=== PATIENT | male | born 1935 | race Caucasian/White ===

== ENCOUNTER 2016-09-15 06:37 | Observation (INO) | payer OTHER ==
[~2016-09-15] VITALS: Ht 167.6 cm; Wt 85.2 kg
[2016-09-15] VITALS (14 sets, daily range): BP systolic 131–159; BP diastolic 55–68; PULSE 57–87; RESP 18; TEMP 97.6–98.1; O2SAT 91–93
[~2016-09-15 06:37] MED LIST: AMLO10TA2 PO; ASPI81CH CHEW; ATOR40TA16 PO; BRIL90TA PO; CHOL1CAP14 PO; FERR1TAB58 PO; FINA5TAB2 PO; FURO40TA PO; LISI40TA PO; MEMA1TAB2 PO; METF850T PO; METO25TA3 PO; MULTTAB67 PO; NITR0.4S SL; PANT20 PO; PENT400T19 PO
[2016-09-15] MEDS: NS 1000P @30 MLS/HR (KVO) IV SCH ×2 (07:00→12:29)
[2016-09-15] MEDS ORDERED: diphenhydrAMINE HCL 50 MG CAP PO SCH (07:00)
[2016-09-15 07:25] LABS: BASOPHIL # 0.1 TH/MM3 (0-0.2); BASOPHIL % 1.1 % (0.0-2.0); EOSINOPHIL # 0.1 TH/MM3 (0-0.4); EOSINOPHIL % 0.7 % (0.0-4.0); HEMATOCRIT 31.3 % (39.0-51.0); HEMO FLAGS DIFF FINAL; LYMPH % 15.6 % (9.0-44.0); LYMPHOCYTE # 1.3 TH/MM3 (1.0-4.8); MEAN CORPUSCULAR HEMOGLOBIN 30.3 PG (27.0-34.0); MEAN CORPUSCULAR HGB CONC 34.4 % (32.0-36.0); MONO % 9.8 % (0.0-8.0); NEUT % 72.8 % (16.0-70.0); PLATELET COUNT 223 TH/MM3 (150-450); RED BLOOD COUNT 3.55 MIL/MM3 (4.50-5.90); RED CELL DISTRIBUTION WIDTH 13.5 % (11.6-17.2); WHITE BLOOD COUNT 8.3 TH/MM3 (4.0-11.0)
[2016-09-15] MEDS ORDERED: LANTINJ SQ (07:25)
[2016-09-15] MEDS ORDERED: ISOS30TA3 PO (07:25)
[2016-09-15] MEDS ORDERED: SPIR50TA PO (07:25)
[2016-09-15 07:34] LABS: APTT (PATIENT) 27.5 SEC (24.3-30.1); PROTHROMBIN TIME - PATIENT 11.3 SEC (9.8-11.6)
[2016-09-15 07:39] LABS: BICARBONATE 28.5 MEQ/L (21.0-32.0); POTASSIUM 3.5 MEQ/L (3.5-5.1)
[2016-09-15] MEDS ORDERED: methylPREDNISolone SOD SUCC 125 MG/2 ML VIAL IV ONE (08:00)
[2016-09-15] MEDS ORDERED: MIDAZOLAM HCL 2 MG/2 ML VIAL IV ONE (08:00)
[2016-09-15] MEDS ORDERED: FAMOTIDINE 20 MG/2 ML VIAL IV ONE (08:00)
[2016-09-15] MEDS ORDERED: HEPARIN SODIUM - IV 10,000 UNITS/10 ML VIAL IV ONE ×2 (08:00)
[2016-09-15] MEDS ORDERED: HEPARIN-NS/PF INJ 500 ML ONE (08:19)
[2016-09-15] MEDS ORDERED: methylPREDNISolone SOD SUCC 125 MG/2 ML VIAL ONE (08:26)
[2016-09-15] MEDS ORDERED: MIDAZOLAM HCL 2 MG/2 ML VIAL ONE (08:26)
[2016-09-15] MEDS ORDERED: HEPARIN SODIUM - IV 10,000 UNITS/10 ML VIAL ONE (09:12)
[2016-09-15] MEDS ORDERED: SODIUM CHLORIDE 0.9% FLUSH 5 ML FLUSH IVF PRN (10:15)
[2016-09-15] MEDS ORDERED: ONDANSETRON HCL 4 MG/2 ML VIAL IV PRN (10:15)
[2016-09-15] MEDS: TICAGRELOR 90 MG TAB PO SCH ×3 (10:15→21:00)
[2016-09-15] MEDS ORDERED: ASPIRIN 81 MG CHEW TAB PO SCH (10:15)
[2016-09-15] MEDS ORDERED: MISC INFORMATION XX ONE (10:15)
[2016-09-15] MEDS ORDERED: ATROPINE SULFATE 1 MG/ML VIAL IV PRN (10:15)
[2016-09-15] MEDS: SODIUM CHLORIDE 0.9% FLUSH 5 ML FLUSH IVF SCH ×2 (10:15→20:29)
--- NOTE | 2016-09-15 10:41 | MA ---
cc: JENNIFERNICHOLAS Meadows DATE 09/15/2016 DATE OF 1935 PROCEDURE PERFORMED 1. Left heart catheterization, selective 2. SVG and SPENCER angiography. 3. Successful PCI/CURTIS to ramus 4. Successful POBA to Left main. INDICATION Unstable angina. DESCRIPTION OF PROCEDURE Consent signed. The patient was prepped and draped in sterile fashion. Premedication for contrast allergy was given. Using 1% lidocaine for local anesthesia and a micropuncture kit, a 6-[place] line sheath was inserted into the right common femoral artery, right common femoral and angiography confirmed position of the sheath. Then selective right and left coronary angiography was performed with a JL-4 and a AR-1 diagnostic catheter followed by angiography of the saphenous vein graft as well as of the left anterior pulmonary artery. Angiography was performed in multiple views. The left ventricle was crossed with a JR-4 diagnostic catheter. Hemodynamics were recorded and then pullback. The previous left main stent was patent, however, the ramus vessel had a proximal 99% stenosis which is new since previous intervention which was DOMI- II flow. The length of the lesion is 8 mm. Thus, we proceeded to fix this vessel. IV Heparin given for anticoagulation. The left main was engaged with a 3.5 EBU guide 6-[place] guide. Then the RAMUS was wired with a Choice PT extra- support and anchored distally without complications. Then the vessel was predilated with a 1.5 balloon followed by a 2.0 balloon. Then we inserted and deployed a 2.25 x 8 drug-eluting stent which was inflated to high atmospheres. Then we proceeded to treat a 40% lesion in the left main with a noncompliant 4- 0 balloon to high atmospheres. Final angiographic views revealed good stent apposition and expansion with DOMI-III flow. ESTIMATED BLOOD LOSS Less than 50 cc. The right groin access site was closed with a Perclose device. ANGIOGRAPHIC FINDINGS The left ventricular pressure was 155/26 with an LVEDP of 37. The aortic pressure was 155/50 with a mean of 80. There was no gradient from pullback from the left ventricle to the aorta. 1. The left main has a patent stent with a 40% focal lesion distally. 2. The LAD is 100% occluded in the mid segment. The first diagonal is diffusely diseased with calcifications throughout. 3. The left circumflex is 100% occluded at the ostium. 4. The right coronary artery is a small vessel, nondominant, diffusely diseased with a long 98% lesion proximal to mid segment. 5. The saphenous vein graft to OM is in sequential configuration to the third OM and to the PDA is patent. 6. The SPENCER to the LAD is patent. It attaches to the LAD in the mid segment. The LAD is a transapical vessel with minimal luminal irregularities and DOMI- III flow. 7. The ramus has a 90% lesion in its ostium. It is a small vessel and diffusely diseased. CONCLUSIONS 1. Severe upper [place] coronary artery disease status Patent 2/2 grafts. 2. Successful PCI/CURTIS to RAMUS. 3. Successful POBA to left main. 4. Elevated LVEDP. RECOMMENDATIONS 1. Continue dual antiplatelet agent with aspirin and Brilinta. 2. Continue OMT for coronary artery disease/ischemia with beta-blockers and increase long-acting Imdur to 60 mg p.o. daily. 3. Continue LITTLE inhibitors and statins. Patient will follow with Dr. Crawford MD DONNA Lindsey/MOISES /10:09 AM /10:19 AM INA
[2016-09-15] MEDS ORDERED: IOHEXOL 350 MG/ML 50 ML BTL (for Cath Lab) OTHER ONE (11:38)
[2016-09-15] MEDS ORDERED: IOHEXOL 350 MG/ML 100 ML BTL (for Cath Lab) OTHER ONE (11:38)
[2016-09-15] MEDS ORDERED: RESP: LEVALBUTEROL HYDROCHLORIDE 1.25 MG/3 ML NEB (SCH) NEB ONE (18:00)
[2016-09-15] MEDS ORDERED: FUROSEMIDE 20 MG/2 ML VIAL IV PUSH ONE (18:15)
--- NOTE | 2016-09-15 18:32 | EKG ---
Date Performed: 09/15/2016 Time Performed: 07:26:48 PTAGE: 81 years EKG: Atrial Ventricular paced Left axis deviation Abnormal ECG PREVIOUS TRACING : 08/01/2016 18.14 Compared to prior tracing no significant change DOCTOR: Carlitos Sidhu Interpretating Date/Time 09/15/2016 18:30:24
[2016-09-15] MEDS ORDERED: ATORVASTATIN 40 MG TAB PO SCH (21:00)
[2016-09-15] MEDS ORDERED: DEXTROSE 50% IN WATER 50 ML VIAL(D50) IV PUSH PRN (21:15)
[2016-09-15] MEDS ORDERED: GLUCAGON 1 MG/ML VIAL OTHER PRN (21:15)
[2016-09-15] MEDS: METOPROLOL TARTRATE 25 MG TAB PO SCH (21:34)
[2016-09-15] MEDS: INSULIN NovoLIN REGULAR SUPPLEMENTAL SCALE SQ SCH (21:36)
[2016-09-16] VITALS (11 sets, daily range): BP systolic 129–136; BP diastolic 58–68; PULSE 60–74; RESP 19; TEMP 97.8–98; O2SAT 94–97
[2016-09-16] MEDS: METOPROLOL TARTRATE 25 MG TAB PO SCH (06:14)
[2016-09-16] MEDS: INSULIN NovoLIN REGULAR SUPPLEMENTAL SCALE SQ SCH (06:15)
[2016-09-16] MEDS: TICAGRELOR 90 MG TAB PO SCH (08:42)
[2016-09-16] MEDS: SODIUM CHLORIDE 0.9% FLUSH 5 ML FLUSH IVF SCH (08:45)
[2016-09-16] MEDS ORDERED: LISINOPRIL 20 MG TAB PO SCH (09:00)
[2016-09-16] MEDS ORDERED: ISOSORBIDE MONONITRATE 30 MG TAB PO SCH (09:00)
[2016-09-16] MEDS ORDERED: PANTOPRAZOLE SOD 20 MG DELAYED RELEASE TAB PO SCH (09:00)
[2016-09-16] MEDS ORDERED: MULTIVITAMIN TAB PO SCH (09:00)
[2016-09-16] MEDS ORDERED: MEMANTINE HCL 10 MG TAB PO SCH (09:00)
[2016-09-16] MEDS ORDERED: SPIRONOLACTONE 50 MG TAB PO SCH (09:00)
[2016-09-16] MEDS ORDERED: ASPIRIN 81 MG CHEW TAB CHEW SCH (09:00)
[2016-09-16] MEDS ORDERED: FINASTERIDE 5 MG TAB PO SCH (09:00)
[2016-09-16] MEDS ORDERED: FUROSEMIDE 40 MG TAB PO SCH (09:00)
--- NOTE | 2016-09-16 09:20 | HHI.DS ---
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 CBC/BMP: 09/15/16 0710 09/15/16 0710 Significant Findings Laboratory Tests Test 09/15/16 07:10 Red Blood Count 3.55 MIL/MM3 (4.50-5.90) Hemoglobin 10.8 GM/DL (13.0-17.0) Hematocrit 31.3 % (39.0-51.0) Neutrophils (%) (Auto) 72.8 % (16.0-70.0) Monocytes (%) (Auto) 9.8 % (0.0-8.0) Blood Urea Nitrogen 25 MG/DL (7-18) Estimat Glomerular Filtration 53 ML/MIN (>89) Rate Random Glucose 140 MG/DL (74-106) Calcium Level 8.4 MG/DL (8.5-10.1) PE at Discharge GENERAL: Well-nourished, well-developed patient. SKIN: Warm and dry. HEAD: Normocephalic. EYES: No scleral icterus. No injection or drainage. NECK: Supple, trachea midline. No JVD or lymphadenopathy. CARDIOVASCULAR: Regular rate and rhythm without murmurs, gallops, or rubs. RESPIRATORY: Breath sounds equal bilaterally. No accessory muscle use. GASTROINTESTINAL: Abdomen soft, non-tender, nondistended. EXTREMITIES: No cyanosis, or edema. NEUROLOGICAL: Awake, alert, and oriented x 3. Non-focal. Pt Condition on Discharge: Good Discharge Disposition: Discharge Home Discharge Instructions DIET: Follow Instructions for: Diabetic Diet Activities you can perform: Regular-No Restrictions Hector Harris MD Sep 16, 2016 09:20
--- NOTE | 2016-09-16 09:21 | PD.CARD.PN ---
Subjective Subjective Remarks no complaints no overnight events ambulating without difficulty Objective Medications Current Medications Medications (Trade) Dose Ordered Sig/Alfie Route Start Time Stop Time Status Last Admin (NS 1000 ml Inj) 1,000 ml @ 30 mls/hr Q24H IV 09/15/16 07:00 09/15/16 07:00 (NS Flush) 2 ml UNSCH PRN IVF 09/15/16 10:15 (NS Flush) 2 ml BID IVF 09/15/16 10:15 09/16/16 08:45 (Atropine Inj) 0.5 mg UNSCH PRN IV 09/15/16 10:15 (Zofran Inj) 4 mg Q4H PRN IV 09/15/16 10:15 (Norvasc) 10 mg DAILY PO 09/15/16 20:45 09/16/16 08:42 (Aspirin Chew) 81 mg DAILY CHEW 09/16/16 09:00 09/16/16 08:42 (Lipitor) 40 mg HS PO 09/15/16 21:00 09/15/16 21:34 (Proscar) 5 mg DAILY PO 09/16/16 09:00 09/16/16 08:42 (Lasix) 40 mg DAILY PO 09/16/16 09:00 09/16/16 08:43 (Imdur) 30 mg DAILY PO 09/16/16 09:00 09/16/16 08:42 (Prinivil) 40 mg DAILY PO 09/16/16 09:00 09/16/16 08:41 (Namenda) 10 mg DAILY PO 09/16/16 09:00 09/16/16 08:41 (Lopressor) 25 mg Q8HR PO 09/15/16 22:00 09/16/16 06:14 (Theragran) 1 tab DAILY PO 09/16/16 09:00 09/16/16 08:41 (Protonix) 20 mg DAILY PO 09/16/16 09:00 09/16/16 08:42 (Aldactone) 50 mg DAILY PO 09/16/16 09:00 09/16/16 08:42 (Brilinta) 90 mg BID PO 09/15/16 21:00 09/16/16 08:42 (D50w (Vial) Inj) 25 ml UNSCH PRN IV PUSH 09/15/16 21:15 (Glucagon Inj) 1 mg UNSCH PRN OTHER 09/15/16 21:15 Vital Signs / I&O Vital Signs Date Time Temp Pulse Resp B/P Pulse Ox O2 Delivery O2 Flow Rate FiO2 09/16/16 08:09 60 09/16/16 07:45 98.0 66 19 136/58 97 09/16/16 07:00 60 09/16/16 06:29 66 09/16/16 05:49 74 09/16/16 04:00 64 09/16/16 03:00 97.8 68 129/68 94 09/16/16 03:00 63 09/16/16 02:00 62 09/16/16 01:00 66 09/16/16 00:00 66 09/15/16 23:00 78 09/15/16 23:00 97.6 69 134/63 92 09/15/16 22:00 78 09/15/16 21:00 76 09/15/16 20:00 80 09/15/16 19:00 79 09/15/16 19:00 97.6 87 151/68 91 09/15/16 18:23 92 Nasal Cannula 2.00 09/15/16 18:01 73 09/15/16 17:11 72 09/15/16 16:09 69 09/15/16 15:00 63 09/15/16 15:00 98.1 61 18 131/55 92 09/15/16 14:53 63 09/15/16 13:31 71 09/15/16 12:33 98.1 61 18 140/59 93 09/15/16 10:07 Room Air I/O 09/15/16 09/15/16 09/15/16 09/16/16 09/16/16 09/16/16 07:00 15:00 23:00 07:00 15:00 23:00 Intake Total 340 ml 240 ml Output Total 400 ml 1550 ml Balance -60 ml -1310 ml Intake Oral 240 ml 240 ml IV Total 100 ml Output Urine Total 400 ml 1550 ml # Bowel Movements 0 Physical Exam GENERAL: Well-nourished, well-developed patient. SKIN: Warm and dry. HEAD: Normocephalic. EYES: No scleral icterus. No injection or drainage. NECK: Supple, trachea midline. No JVD or lymphadenopathy. CARDIOVASCULAR: Regular rate and rhythm without murmurs, gallops, or rubs. RESPIRATORY: Breath sounds equal bilaterally. No accessory muscle use. GASTROINTESTINAL: Abdomen soft, non-tender, nondistended. EXTREMITIES: No cyanosis, or edema. NEUROLOGICAL: Awake, alert, and oriented x 3. Non-focal. Assessment and Plan Problem List: (1) Unstable angina Assessment and Plan: S/P PCI to RAMUS Chest pain free Ambulating without difficulty Stable from CV standpoint to d/c home today Hector Harris MD Sep 16, 2016 09:21
== END 2016-09-16 10:39 | disposition home or self-care (01) ==
LOC: HDIC 06:37 → HDOC 06:37 → HCIS 12:16 → HDOC 17:46
PROVIDERS: ADMIT Radiology Vascular & Interventional Radiology; ATTEND Radiology Vascular & Interventional Radiology
DX: I25.110 Atherosclerotic heart disease of native coronary artery with unstable angina pectoris (principal); I10 Essential (primary) hypertension; J44.9 Chronic obstructive pulmonary disease, unspecified; I73.9 Peripheral vascular disease, unspecified; R94.31 Abnormal electrocardiogram [ECG] [EKG]; E11.9 Type 2 diabetes mellitus without complications; Z79.84 Long term (current) use of oral hypoglycemic drugs
CPT/HCPCS: 80048; 85002; 85025; 85610; 85730; 93005; 93454; 94664; C1725; C1760; C1769; C1874; C1887; C1893; G0269; G0378; J1644; J1940; J2250; J2930; J3010; J7030; J7614; Q0163; Q9967

== ENCOUNTER 2016-09-17 08:45 | Observation (INO) | payer OTHER ==
[~2016-09-17] VITALS: Ht 167.6 cm; Wt 84.6 kg
[~2016-09-17 08:45] MED LIST changes: +ISOS30TA3 PO; +LANTINJ SQ; +SPIR50TA PO
[2016-09-17 08:48] VITALS: BP 143/64; PULSE 62; RESP 18; TEMP 97.8; O2SAT 89
[2016-09-17] MEDS ORDERED: SODIUM CHLORIDE 0.9% FLUSH 5 ML FLUSH IVF PRN (09:15)
[2016-09-17] MEDS ORDERED: ASPIRIN 81 MG CHEW TAB PO ONE (09:15)
--- NOTE | 2016-09-17 09:18 | PD ---
HPI Chief Complaint: Respiratory Distress Time Seen by Provider: 09:06 Travel History International Travel<30 days: No Contact w/Intl Traveler<30days: No Traveled to known affect area: No History of Present Illness HPI Patient is an 81-year-old male with history of hypertension, hyperlipidemia, coronary artery disease , who was discharged yesterday from the hospital after he had a cardiac stent placed by Dr. Hector Carl on Tuesday. As per patient, he felt fine after he was discharged from the hospital yesterday. Reports that he woke up this morning and felt increased shortness of breath. Patient reports that he has chest pain from difficulty breathing, reports that his chest pain feels different from when he had a heart attack on August 01, 2016. Patient reports that while he was in the hospital, he was on oxygen, reports that he was not sent home on oxygen. Reports that he is not oxygen dependent at baseline. Patient with no fevers or chills, patient with no cough or congestion. Patient reports that he has been compliant with his medications which includes amlodipine, aspirin, atorvastatin, furosemide, insulin, brilinta (please see med rec for list of medications) PFSH Past Medical History Hx Anticoagulant Therapy: Yes Arthritis: Yes Heart Rhythm Problems: Yes Cancer: Yes (BLADDER CA, TUMOR REMOVAL) Cardiac Catheterization: Yes Cardiovascular Problems: Yes High Cholesterol: Yes Chemotherapy: Yes Chest Pain: Yes Congestive Heart Failure: Yes COPD: Yes Diabetes: Yes Diminished Hearing: Yes Genitourinary: Yes (BLADDER CA) Hypertension: Yes Musculoskeletal: Yes Neurologic: No Psychiatric: No Reproductive: No Respiratory: Yes Past Surgical History Abdominal Surgery: No Appendectomy: Yes Cardiac Surgery: Yes (PACEMAKER, TRIPLE BYPASS, HEART CATH) Coronary Stent: Yes Pacemaker: Yes Thoracic Surgery: Yes Tonsillectomy: Yes Other Surgery: Yes (UMBILICAL HERNIA, FEM-POP BILATERAL) Social History Alcohol Use: No Tobacco Use: No Substance Use: No Allergies-Medications (Allergen,Severity, Reaction): Coded Allergies: Contrast Media (Verified Allergy, Unknown, 09/17/16) Valium (Verified Adverse Reaction, Mild, Confusion, 09/17/16) Reported Meds & Prescriptions Reported Meds & Active Scripts Active Brilinta (Ticagrelor) 90 Mg Tab 90 Mg PO BID Metoprolol Tartrate 25 Mg Tab 25 Mg PO Q8HR Reported Lantus Solostar Pen Inj (Insulin Glargine) 300 Unit/3 Ml Pen 14 Units SQ Isosorbide Mononitrate ER (Isosorbide Mononitrate) 30 Mg Chacha 30 Mg PO DAILY Nitrostat SL (Nitroglycerin) 0.4 Mg Subl 0.4 Mg SL DIRECTED PRN 1 tablet under the tongue as needed for chest pain. Repeat every 5 minutes for a total of 3 DOSES or call 911 if NO relief. Iron (Ferrous Sulfate) 50 Mg Tab 50 Mg PO DAILY D3 Maximum Strength (Cholecalciferol) 5,000 Unit Cap 5,000 Units PO DAILY Multiple Vitamin 1 Tab 1 Tab PO DAILY Aspirin 81 Mg Chew 81 Mg CHEW DAILY Memantine 10 Mg Tab 10 Mg PO DAILY Pentoxifylline CR (Pentoxifylline) 400 Mg Tab 400 Mg PO TID Atorvastatin (Atorvastatin Calcium) 40 Mg Tab 40 Mg PO HS Finasteride 5 Mg Tab 5 Mg PO DAILY Do not crush. Metformin (Metformin HCl) 850 Mg Tab 850 Mg PO DAILY With a meal Amlodipine (Amlodipine Besylate) 10 Mg Tab 10 Mg PO DAILY Furosemide 40 Mg Tab 40 Mg PO DAILY Protonix (Pantoprazole Sodium) 20 Mg Tab 20 Mg PO DAILY Lisinopril 40 Mg Tab 40 Mg PO DAILY Review of Systems General / Constitutional: No: Fever Eyes: No: Visual changes HENT: No: Headaches Cardiovascular: Positive: Chest Pain or Discomfort Respiratory: Positive: Shortness of Breath Gastrointestinal: No: Abdominal Pain Genitourinary: No: Dysuria Musculoskeletal: No: Pain Skin: No Rash Neurologic: No: Weakness Psychiatric: No: Depression Endocrine: No: Polydipsia Hematologic/Lymphatic: No: Easy Bruising Physical Exam Narrative GENERAL: Mild distress SKIN: Warm and dry. HEAD: Atraumatic. Normocephalic. NECK: Trachea midline. No JVD. CARDIOVASCULAR: Regular rate and rhythm. No murmur appreciated. RESPIRATORY: No accessory muscle use. Clear to auscultation. Breath sounds equal bilaterally. Patient with pulse ox of 87% on room air GASTROINTESTINAL: Abdomen soft, non-tender, nondistended. Hepatic and splenic margins not palpable. MUSCULOSKELETAL: No obvious deformities. No clubbing. No cyanosis. No edema. NEUROLOGICAL: Awake and alert. No obvious cranial nerve deficits. Motor grossly within normal limits. Normal speech. PSYCHIATRIC: Appropriate mood and affect; insight and judgment normal. Data Data Last Documented VS Vital Signs Date Time Temp Pulse Resp B/P Pulse Ox O2 Delivery O2 Flow Rate FiO2 09/17/16 10:30 61 18 139/63 95 Nasal Cannula 2 09/17/16 08:48 97.8 Orders Electrocardiogram (09/17/16 09:07) B-Type Natriuretic Peptide (09/17/16 09:07) Ckmb (Isoenzyme) Profile (09/17/16 09:07) Complete Blood Count With Diff (09/17/16 09:07) Comprehensive Metabolic Panel (09/17/16 09:07) Magnesium (Mg) (09/17/16 09:07) Prothrombin Time / Inr (Pt) (09/17/16 09:07) Act Partial Throm Time (Ptt) (09/17/16 09:07) Troponin I (09/17/16 09:07) Chest, Single Ap (09/17/16 09:07) Ecg Monitoring (09/17/16 09:07) Iv Access Insert/Monitor (09/17/16 09:07) Oximetry (09/17/16 09:07) Oxygen Administration (09/17/16 09:07) Aspirin Chew (Aspirin Chew) (09/17/16 09:15) Sodium Chloride 0.9% Flush (Ns Flush) (09/17/16 09:15) Arterial Blood Gas (Abg) (09/17/16 ) Furosemide Inj (Lasix Inj) (09/17/16 11:00) Admit Order (Ed Use Only) (09/17/16 11:21) Labs Laboratory Tests Test 09/17/16 09/17/16 09:25 09:40 White Blood Count 10.8 TH/MM3 Red Blood Count 3.31 MIL/MM3 Hemoglobin 10.0 GM/DL Hematocrit 29.4 % Mean Corpuscular Volume 88.6 FL Mean Corpuscular Hemoglobin 30.1 PG Mean Corpuscular Hemoglobin 33.9 % Concent Red Cell Distribution Width 14.2 % Platelet Count 276 TH/MM3 Mean Platelet Volume 8.8 FL Neutrophils (%) (Auto) 82.9 % Lymphocytes (%) (Auto) 8.3 % Monocytes (%) (Auto) 8.0 % Eosinophils (%) (Auto) 0.4 % Basophils (%) (Auto) 0.4 % Neutrophils # (Auto) 9.0 TH/MM3 Lymphocytes # (Auto) 0.9 TH/MM3 Monocytes # (Auto) 0.9 TH/MM3 Eosinophils # (Auto) 0.0 TH/MM3 Basophils # (Auto) 0.0 TH/MM3 CBC Comment DIFF FINAL Differential Comment Prothrombin Time 11.3 SEC Prothromb Time International 1.0 RATIO Ratio Activated Partial 24.6 SEC Thromboplast Time Sodium Level 141 MEQ/L Potassium Level 3.6 MEQ/L Chloride Level 104 MEQ/L Carbon Dioxide Level 25.9 MEQ/L Anion Gap 11 MEQ/L Blood Urea Nitrogen 28 MG/DL Creatinine 1.43 MG/DL Estimat Glomerular Filtration 48 ML/MIN Rate Random Glucose 166 MG/DL Calcium Level 8.0 MG/DL Magnesium Level 1.6 MG/DL Total Bilirubin 0.8 MG/DL Aspartate Amino Transf 10 U/L (AST/SGOT) Alanine Aminotransferase 15 U/L (ALT/SGPT) Alkaline Phosphatase 79 U/L Total Creatine Kinase 72 U/L Troponin I 0.06 NG/ML B-Type Natriuretic Peptide 548 PG/ML Total Protein 6.6 GM/DL Albumin 3.1 GM/DL Blood Gas Puncture Site LT RADIAL Blood Gas Patient Temperature 98.6 Blood Gas HCO3 24 mmol/L Blood Gas Base Excess 0.1 mmol/L Blood Gas Oxygen Saturation 90 % Arterial Blood pH 7.42 Arterial Blood Partial 38 mmHg Pressure CO2 Arterial Blood Partial 69 mmHG Pressure O2 Arterial Blood Oxygen Content 12.6 Vol % Arterial Blood 2.5 % Carboxyhemoglobin Arterial Blood Methemoglobin 2.0 % Blood Gas Hemoglobin 10.0 G/DL Oxygen Delivery Device NASAL CANNULA Blood Gas Liter Flow 2 L/M MDM Medical Decision Making Medical Screen Exam Complete: Yes Emergency Medical Condition: Yes Interpretation(s) ekg at 0909 atrial paced at 60bpm, qt/qtc: 494/494, ekg similar to previous ekg Vital Signs Date Time Temp Pulse Resp B/P Pulse Ox O2 Delivery O2 Flow Rate FiO2 09/17/16 08:48 97.8 62 18 143/64 89 Differential Diagnosis acs, arrhythmia, PE, pneumothorax, CHF, pleural effusions Narrative Course Patient is an 81-year-old male who presents to emergency room with complaints of shortness of breath. Patient reports that he woke up with shortness of breath this morning and had some chest tightness. Reports that he felt as if he could not take a deep breath, reports that symptoms feels different from when he had a heart attack in the past. Patient reports he was just discharged from the hospital yesterday after he had a stent placed by Dr. Hector Carl. Patient with no fevers or chills, no other complaints at this time. Patient was placed on court monitor upon arrival to most room. EKG obtained, patient is atrial paced with no acute changes. Labs as well as x-ray chest ordered. Patient is hypoxic at 87% on room air, ABG ordered, will continue to monitor patient. Vital Signs Date Time Temp Pulse Resp B/P Pulse Ox O2 Delivery O2 Flow Rate FiO2 09/17/16 10:30 61 18 139/63 95 Nasal Cannula 2 09/17/16 09:36 20 97 Nasal Cannula 2 09/17/16 09:12 87 Room Air 09/17/16 08:48 97.8 62 18 143/64 89 CBC & BMP Diagram 09/17/16 09:25 patient hypoxic with pulse ox of 87% on room air - hypoxia most likely from CHF exacerbation, chest xray with chf, bnp 548. IV lasix ordered for patient. Patient will require observation for acute hypoxia. Patient comfortable at this time with Oxygen case reviewed with dr cobb who accepts pt to service case reviewed with dr carl, request PE study, cta of chest initially ordered - pt with allergy to contrast media, will change to VQ scan Diagnosis Primary Impression: CHF exacerbation Qualified Code: I50.9 - Acute on chronic congestive heart failure, unspecified congestive heart failure type Additional Impression: acute hypoxia Admitting Information Admitting Physician Requests: Observation [place] Gunderson DO Sep 17, 2016 09:18
[2016-09-17 09:51] LABS: BASOPHIL % 0.4 % (0.0-2.0); EOSINOPHIL % 0.4 % (0.0-4.0); HEMATOCRIT 29.4 % (39.0-51.0); HEMO FLAGS DIFF FINAL; LYMPH % 8.3 % (9.0-44.0); LYMPHOCYTE # 0.9 TH/MM3 (1.0-4.8); MEAN CELL VOLUME 88.6 FL (80.0-100.0); MEAN CORPUSCULAR HEMOGLOBIN 30.1 PG (27.0-34.0); MEAN CORPUSCULAR HGB CONC 33.9 % (32.0-36.0); NEUT % 82.9 % (16.0-70.0); PLATELET COUNT 276 TH/MM3 (150-450); RED BLOOD COUNT 3.31 MIL/MM3 (4.50-5.90); RED CELL DISTRIBUTION WIDTH 14.2 % (11.6-17.2); WHITE BLOOD COUNT 10.8 TH/MM3 (4.0-11.0)
[2016-09-17 09:53] LABS: BLOOD GAS BASE EXCESS 0.1 mmol/L (-2-2); BLOOD GAS CARBOXYHEMOGLOBIN 2.5 % (0-4); BLOOD GAS HCO3 24 mmol/L (22-26); BLOOD GAS O2 HGB SATURATION 90 % (90-100); BLOOD GAS OXYGEN CONTENT 12.6 Vol % (12.0-20.0); BLOOD GAS PCO2 38 mmHg (38-42); BLOOD GAS PO2 69 mmHG (61-120); CRITICAL VALUE NO; DRAW SITE LT RADIAL; LITER FLOW 2 L/M; NUMBER OF ARTERIAL PUNCTURES 1; OXYGEN DEVICE NASAL CANNULA; TEMP CORR TO 98.6; ULNAR PULSE PRESENT
[2016-09-17 09:54] LABS: STAT YES
[2016-09-17 09:58] LABS: APTT (PATIENT) 24.6 SEC (24.3-30.1); PROTHROMBIN TIME - PATIENT 11.3 SEC (9.8-11.6)
[2016-09-17 10:01] LABS: ANION GAP 11 MEQ/L (5-15); AST (GOT) 10 U/L (15-37); BICARBONATE 25.9 MEQ/L (21.0-32.0); BLOOD UREA NITROGEN 28 MG/DL (7-18); CHLORIDE 104 MEQ/L (98-107); GLOMERULAR FILTRATION RATE 48 ML/MIN (>89); MAGNESIUM 1.6 MG/DL (1.5-2.5); POTASSIUM 3.6 MEQ/L (3.5-5.1); SODIUM (NA) 141 MEQ/L (136-145)
[2016-09-17 10:07] LABS: ALKALINE PHOSPHATASE 79 U/L (45-117); ALT (GPT) 15 U/L (12-78); TOTAL BILIRUBIN ADULT 0.8 MG/DL (0.2-1.0)
[2016-09-17 10:09] LABS: CREATINE KINASE 72 U/L (39-308)
--- NOTE | 2016-09-17 10:18 | RADRPT ---
EXAM DATE/TIME: 09/17/2016 09:04 [facility] COMPARISON: CHEST PA & LAT, August 01, 2016, 3:41. INDICATIONS : Complaints of chest pains, headache and shortness of breath after discharge from stent placement. MEDICAL HISTORY : None. SURGICAL HISTORY : Pacemaker. Stent placement 09/15/16. ENCOUNTER: Initial ACUITY: 2 days PAIN SCORE: 4/10 LOCATION: Chest, midline. FINDINGS: The cardiac silhouette is normal in transverse diameter. Median sternotomy wires are present. A bipol ar pacemaker is in place via a left sided approach. There is prominence of the central pulmonary vasc ulature with indistinct vascular margins compatible with vascular congestion but no evidence of overt failure. There is elevation of the left hemidiaphragm. CONCLUSION: 1. Cardiomegaly and findings of vascular congestion without overt failure. Kadeem Tidwell MD on September 17, 2016 at 10:15 Board Certified Radiologist. This report was verified electronically.
[2016-09-17 10:30] VITALS: BP 139/63; PULSE 61; RESP 18; O2SAT 95
[2016-09-17] MEDS ORDERED: FUROSEMIDE 40 MG/4 ML VIAL IV PUSH ONE (11:00)
[2016-09-17] MEDS ORDERED: ACETAMINOPHEN 325 MG TAB PO PRN ×2 (11:45)
[2016-09-17] MEDS ORDERED: ONDANSETRON HCL 4 MG/2 ML VIAL IVP PRN (11:45)
[2016-09-17] MEDS ORDERED: NALOXONE HCL 0.4 MG/ML AMP IV PRN (11:45)
[2016-09-17] MEDS ORDERED: SODIUM CHLORIDE 0.9% FLUSH 5 ML FLUSH FLUSH PRN (11:45)
[2016-09-17 14:06] VITALS: BP 123/57; PULSE 60; RESP 20; TEMP 97.6; O2SAT 96
--- NOTE | 2016-09-17 14:11 | PD.CONS ---
HPI Service 09/17/16 Consult Requested By ER Reason for Consult CHF Primary Care Physician Milan Lubin MD History of Present Illness 81-year-old male known to me with severe ischemic cardiomyopathy s/p recent PCI/ CURTIS to ramus in the setting of worsening angina. He presents to ER with SOB on exertion, hypoxic and bilateral leg edema. Past medical history CAD s/p CABG, PCI, LV systolic dysfunction s/p AICD, HTN, HLD, RBBB, PAD and TIA. He denies chest pain, palpitations, syncope, PND, bleeding, noncompliance with medical therapy or dietary indiscretions. He is on DAPT (Aspirin and Brilinta). Cardiology consulted for HF management. Review of Systems Consitutional: DENIES: Fatigue, Fever, Chills, Weight gain, Weight loss Eyes: DENIES: Amaurosis Fugax, Change in vision HEENT: DENIES: Lightheadedness, Change in hearing Respiratory: COMPLAINS OF: Shortness of breath, DENIES: See HPI, Cough, Snoring, Wheezing, Sputum production Cardiovascular: DENIES: See HPI, Chest pain, Palpitations, Syncope, Tachycardia Gastrointestinal: DENIES: Nausea, Vomiting, Change in bowel habits, Reflux, Bloody stools, Melena Genitourinary: DENIES: Urinary incontinence, Difficulty voiding Integumentary: DENIES: Rash Neurologic: DENIES: Tingling or numbness, Memory problems, Poor Balance, Stroke symptoms Musculoskeletal: DENIES: Joint pain, Muscle pain, Limited range of motion, Back pain Psychiatric: DENIES: Anxiety, Depression, Sleep disturbances Hematologic: DENIES: Bruising tendencies, Bleeding tendencies Endocrine: DENIES: Weight gain, Weight loss, Thyroid disease Past Family Social History Allergies: Coded Allergies: Contrast Media (Verified Allergy, Unknown, 09/17/16) Valium (Verified Adverse Reaction, Mild, Confusion, 09/17/16) Past Medical History Second-degree heart block with Biotronik pacemaker Bladder cancer Coronary artery disease Hypertension Hyperlipidemia Diabetes Chronic kidney disease Colon polyps Bilateral cataracts Melanoma Osteoarthritis Right bundle-branch block TIA Past Surgical History Bilateral fem-tibial bypass Appendectomy Left knee replacement Tonsillectomy Umbilical hernia repair Reported Medications Reported Meds & Active Scripts Active Brilinta (Ticagrelor) 90 Mg Tab 90 Mg PO BID Metoprolol Tartrate 25 Mg Tab 25 Mg PO Q8HR Reported Lantus Solostar Pen Inj (Insulin Glargine) 300 Unit/3 Ml Pen 14 Units SQ Isosorbide Mononitrate ER (Isosorbide Mononitrate) 30 Mg Chacha 30 Mg PO DAILY Nitrostat SL (Nitroglycerin) 0.4 Mg Subl 0.4 Mg SL DIRECTED PRN 1 tablet under the tongue as needed for chest pain. Repeat every 5 minutes for a total of 3 DOSES or call 911 if NO relief. Iron (Ferrous Sulfate) 50 Mg Tab 50 Mg PO DAILY D3 Maximum Strength (Cholecalciferol) 5,000 Unit Cap 5,000 Units PO DAILY Multiple Vitamin 1 Tab 1 Tab PO DAILY Aspirin 81 Mg Chew 81 Mg CHEW DAILY Memantine 10 Mg Tab 10 Mg PO DAILY Pentoxifylline CR (Pentoxifylline) 400 Mg Tab 400 Mg PO TID Atorvastatin (Atorvastatin Calcium) 40 Mg Tab 40 Mg PO HS Finasteride 5 Mg Tab 5 Mg PO DAILY Do not crush. Metformin (Metformin HCl) 850 Mg Tab 850 Mg PO DAILY With a meal Amlodipine (Amlodipine Besylate) 10 Mg Tab 10 Mg PO DAILY Furosemide 40 Mg Tab 40 Mg PO DAILY Protonix (Pantoprazole Sodium) 20 Mg Tab 20 Mg PO DAILY Lisinopril 40 Mg Tab 40 Mg PO DAILY Active Ordered Medications Current Medications Medications (Trade) Dose Ordered Sig/Alfie Route Start Time Stop Time Status Last Admin (NS Flush) 2 ml UNSCH PRN FLUSH 09/17/16 11:45 (NS Flush) 2 ml BID FLUSH 09/17/16 21:00 (Tylenol) 650 mg Q4H PRN PO 09/17/16 11:45 (Zofran Inj) 4 mg Q6H PRN IVP 09/17/16 11:45 (Restoril) 15 mg HS PRN PO 09/17/16 21:00 (Tylenol) 650 mg Q6H PRN PO 09/17/16 11:45 (Narcan Inj) 0.4 mg UNSCH PRN IV 09/17/16 11:45 Family History Noncontributory Social History Former smoker Physical Exam Vital Signs Vital Signs Date Time Temp Pulse Resp B/P Pulse Ox O2 Delivery O2 Flow Rate FiO2 09/17/16 10:30 61 18 139/63 95 Nasal Cannula 2 09/17/16 09:36 20 97 Nasal Cannula 2 09/17/16 09:12 87 Room Air 09/17/16 08:48 97.8 62 18 143/64 89 Physical Exam GENERAL: Well-nourished, well-developed patient. SKIN: Warm and dry. HEAD: Normocephalic. EYES: No scleral icterus. No injection or drainage. NECK: Supple, trachea midline. No JVD or lymphadenopathy. CARDIOVASCULAR: Regular rate and rhythm without murmurs, gallops, or rubs. RESPIRATORY: Breath sounds equal bilaterally. No accessory muscle use. GASTROINTESTINAL: Abdomen soft, non-tender, nondistended. EXTREMITIES: No cyanosis, or edema. NEUROLOGICAL: Awake, alert, and oriented x 3. Non-focal. Laboratory Laboratory Tests Test 09/17/16 09/17/16 09:25 09:40 White Blood Count 10.8 Red Blood Count 3.31 Hemoglobin 10.0 Hematocrit 29.4 Mean Corpuscular Volume 88.6 Mean Corpuscular Hemoglobin 30.1 Mean Corpuscular Hemoglobin 33.9 Concent Red Cell Distribution Width 14.2 Platelet Count 276 Mean Platelet Volume 8.8 Neutrophils (%) (Auto) 82.9 Lymphocytes (%) (Auto) 8.3 Monocytes (%) (Auto) 8.0 Eosinophils (%) (Auto) 0.4 Basophils (%) (Auto) 0.4 Neutrophils # (Auto) 9.0 Lymphocytes # (Auto) 0.9 Monocytes # (Auto) 0.9 Eosinophils # (Auto) 0.0 Basophils # (Auto) 0.0 CBC Comment DIFF FINAL Differential Comment Prothrombin Time 11.3 Prothromb Time International 1.0 Ratio Activated Partial 24.6 Thromboplast Time Sodium Level 141 Potassium Level 3.6 Chloride Level 104 Carbon Dioxide Level 25.9 Anion Gap 11 Blood Urea Nitrogen 28 Creatinine 1.43 Estimat Glomerular Filtration 48 Rate Random Glucose 166 Calcium Level 8.0 Magnesium Level 1.6 Total Bilirubin 0.8 Aspartate Amino Transf 10 (AST/SGOT) Alanine Aminotransferase 15 (ALT/SGPT) Alkaline Phosphatase 79 Total Creatine Kinase 72 Troponin I 0.06 B-Type Natriuretic Peptide 548 Total Protein 6.6 Albumin 3.1 Blood Gas Puncture Site LT RADIAL Blood Gas Patient Temperature 98.6 Blood Gas HCO3 24 Blood Gas Base Excess 0.1 Blood Gas Oxygen Saturation 90 Arterial Blood pH 7.42 Arterial Blood Partial 38 Pressure CO2 Arterial Blood Partial 69 Pressure O2 Arterial Blood Oxygen Content 12.6 Arterial Blood 2.5 Carboxyhemoglobin Arterial Blood Methemoglobin 2.0 Blood Gas Hemoglobin 10.0 Oxygen Delivery Device NASAL CANNULA Blood Gas Liter Flow 2 Result Diagram: 09/17/1692409/17/16924 Imaging Last Impressions Chest X-Ray 09/17/16906 Signed Impressions: Service Date/Time: Saturday, September 17, 2016 09:04 - CONCLUSION: 1. Cardiomegaly and findings of vascular congestion without overt failure. Kadeem Tidwell MD Assessment and Plan Problem List: (1) CHF exacerbation Assessment and Plan: Acute on chronic systolic heart failure exacerbation vs. PE. He remains hemodynamically stable, chest pain free and reports SOB has improved after a dose of IV lasix. Physical exam consistent with HF however he has episodes of brief hypoxemia with can be also do to underlying lung issue COPD vs PE. Recommendations: Lasix 40mg IV BID Cont Aspirin and Brilinta Cont Coreg, ACEi, Imdur, Statin and Spironolactone Daily weight Strict I/O V/Q scan r/o PE Respiratory therapy Family at the bedside and their questions were answered. Problem Qualifiers (1) CHF exacerbation: Qualified Code: I50.9 - Acute on chronic congestive heart failure, unspecified congestive heart failure type Hector Harris MD Sep 17, 2016 14:11
--- NOTE | 2016-09-17 15:12 | HHI.HP ---
[facility] MD Admission Diagnosis CHF exacerbation with hypoxia Diagnoses: (1) Acute on chronic systolic (congestive) heart failure Chief Complaint: Shortness of breath Travel History International Travel<30 Days: No Contact w/Intl Traveler <30 Da: No Traveled to Known Affected Are: No History of Present Illness 81-year-old male with a history of CHF, CAD, ischemic cardiomyopathy who was recently discharged from [facility] after undergoing PCI came to the ED for evaluation of worsening shortness of breath and dyspnea on exertion without any associated chest pain. Patient states after discharge yesterday 04/24 he was able to only work 3 blocks however this morning he became severely short of breath. He has no heart palpitation or GI bleed. He reports being compliant with his medications since discharge. Review of Systems Other 12 systems reviewed and are negative except for the one mentioned in history of present illness Past Family Social History Past Medical History Second-degree heart block with Biotronik pacemaker Bladder cancer Coronary artery disease Hypertension Hyperlipidemia Diabetes Chronic kidney disease Colon polyps Bilateral cataracts Melanoma Osteoarthritis Past Surgical History Right bundle-branch block TIA Bilateral fem-tibial bypass Appendectomy Left knee replacement Tonsillectomy Umbilical hernia repair Reported Medications Brilinta (Ticagrelor) 90 Mg Tab 90 Mg PO BID Metoprolol Tartrate 25 Mg Tab 25 Mg PO Q8HR Reported Lantus Solostar Pen Inj (Insulin Glargine) 300 Unit/3 Ml Pen 14 Units SQ Isosorbide Mononitrate ER (Isosorbide Mononitrate) 30 Mg Chacha 30 Mg PO DAILY Nitrostat SL (Nitroglycerin) 0.4 Mg Subl 0.4 Mg SL DIRECTED PRN 1 tablet under the tongue as needed for chest pain. Repeat every 5 minutes for a total of 3 DOSES or call 911 if NO relief. Iron (Ferrous Sulfate) 50 Mg Tab 50 Mg PO DAILY D3 Maximum Strength (Cholecalciferol) 5,000 Unit Cap 5,000 Units PO DAILY Multiple Vitamin 1 Tab 1 Tab PO DAILY Aspirin 81 Mg Chew 81 Mg CHEW DAILY Memantine 10 Mg Tab 10 Mg PO DAILY Pentoxifylline CR (Pentoxifylline) 400 Mg Tab 400 Mg PO TID Atorvastatin (Atorvastatin Calcium) 40 Mg Tab 40 Mg PO HS Finasteride 5 Mg Tab 5 Mg PO DAILY Do not crush. Metformin (Metformin HCl) 850 Mg Tab 850 Mg PO DAILY With a meal Amlodipine (Amlodipine Besylate) 10 Mg Tab 10 Mg PO DAILY Furosemide 40 Mg Tab 40 Mg PO DAILY Protonix (Pantoprazole Sodium) 20 Mg Tab 20 Mg PO DAILY Lisinopril 40 Mg Tab 40 Mg PO DAILY Allergies: Coded Allergies: Contrast Media (Verified Allergy, Unknown, 09/17/16) Valium (Verified Adverse Reaction, Mild, Confusion, 09/17/16) Family History CAD DM Social History Alcohol Use: No Tobacco Use: No Substance Use: No Physical Exam Vital Signs Vital Signs Date Time Temp Pulse Resp B/P Pulse Ox O2 Delivery O2 Flow Rate FiO2 09/17/16 14:06 97.6 60 20 123/57 96 09/17/16 10:30 61 18 139/63 95 Nasal Cannula 2 09/17/16 09:36 20 97 Nasal Cannula 2 09/17/16 09:12 87 Room Air 09/17/16 08:48 97.8 62 18 143/64 89 Physical Exam GENERAL: This is a well-nourished, well-developed patient, in no apparent distress. SKIN: No rashes, ecchymoses or lesions. Cool and dry. HEAD: Atraumatic. Normocephalic. No temporal or scalp tenderness. EYES: Pupils equal round and reactive. Extraocular motions intact. No scleral icterus. No injection or drainage. ENT: Nose without bleeding, purulent drainage or septal hematoma. Throat without erythema, tonsillar hypertrophy or exudate. Uvula midline. Airway patent. NECK: Trachea midline. No JVD or lymphadenopathy. Supple, nontender, no meningeal signs. CARDIOVASCULAR: Regular rate and rhythm without murmurs, gallops, or rubs. RESPIRATORY: Clear to auscultation. Breath sounds equal bilaterally. No wheezes , rales, or rhonchi. GASTROINTESTINAL: Abdomen soft, non-tender, nondistended. No hepato-splenomegaly , or palpable masses. No guarding. MUSCULOSKELETAL: Extremities without clubbing, cyanosis; +1 edema bilateral lower extremities. No joint tenderness, effusion, or edema noted. No calf tenderness. Negative Homans sign bilaterally. NEUROLOGICAL: Awake and alert. Cranial nerves II through XII intact. Motor and sensory grossly within normal limits. Five out of 5 muscle strength in all muscle groups. Normal speech. Laboratory Laboratory Tests Test 09/17/16 09/17/16 09:25 09:40 White Blood Count 10.8 Red Blood Count 3.31 Hemoglobin 10.0 Hematocrit 29.4 Mean Corpuscular Volume 88.6 Mean Corpuscular Hemoglobin 30.1 Mean Corpuscular Hemoglobin 33.9 Concent Red Cell Distribution Width 14.2 Platelet Count 276 Mean Platelet Volume 8.8 Neutrophils (%) (Auto) 82.9 Lymphocytes (%) (Auto) 8.3 Monocytes (%) (Auto) 8.0 Eosinophils (%) (Auto) 0.4 Basophils (%) (Auto) 0.4 Neutrophils # (Auto) 9.0 Lymphocytes # (Auto) 0.9 Monocytes # (Auto) 0.9 Eosinophils # (Auto) 0.0 Basophils # (Auto) 0.0 CBC Comment DIFF FINAL Differential Comment Prothrombin Time 11.3 Prothromb Time International 1.0 Ratio Activated Partial 24.6 Thromboplast Time Sodium Level 141 Potassium Level 3.6 Chloride Level 104 Carbon Dioxide Level 25.9 Anion Gap 11 Blood Urea Nitrogen 28 Creatinine 1.43 Estimat Glomerular Filtration 48 Rate Random Glucose 166 Calcium Level 8.0 Magnesium Level 1.6 Total Bilirubin 0.8 Aspartate Amino Transf 10 (AST/SGOT) Alanine Aminotransferase 15 (ALT/SGPT) Alkaline Phosphatase 79 Total Creatine Kinase 72 Troponin I 0.06 B-Type Natriuretic Peptide 548 Total Protein 6.6 Albumin 3.1 Blood Gas Puncture Site LT RADIAL Blood Gas Patient Temperature 98.6 Blood Gas HCO3 24 Blood Gas Base Excess 0.1 Blood Gas Oxygen Saturation 90 Arterial Blood pH 7.42 Arterial Blood Partial 38 Pressure CO2 Arterial Blood Partial 69 Pressure O2 Arterial Blood Oxygen Content 12.6 Arterial Blood 2.5 Carboxyhemoglobin Arterial Blood Methemoglobin 2.0 Blood Gas Hemoglobin 10.0 Oxygen Delivery Device NASAL CANNULA Blood Gas Liter Flow 2 Result Diagram: 09/17/1692409/17/16924 Assessment and Plan Problem List: (1) Acute on chronic systolic (congestive) heart failure ICD Code: I50.23 Status: Acute Assessment and Plan 81-year-old male with Acute on chronic systolic CHF: Continue with ACS protocol with serial cardiac enzymes, status post Lasix is 40 mg IV 1 in ED; will start 40 mg IV twice a day. Patient is status post recent NSTEMI with PCI. Resume beta toshia, LITTLE inhibitor. CHF medication and strict I's and O's. Consider CTA to rule out PE. Other chronic medical conditions; resume outpatient medications Severe ischemic cardiomyopathy: s/p recent PCI; continue with aspirin,Brilinta, statin, beta toshia PVD: On Trental Hypertension: Continue Lopressor, Norvasc 10 mg daily Hyperlipidemia: Resume statin Diabetes type 2: ISS + FSBG monitoring and resume outpatient medication DVT prophylaxis: Brilinta Code Status Full code Discussed Condition With Patient, ED physician Nickolas Cheung MD Sep 17, 2016 15:11
[2016-09-17 15:36] VITALS: BP 153/67; PULSE 60; RESP 18; TEMP 97.6; O2SAT 95
--- NOTE | 2016-09-17 16:51 | RADRPT ---
EXAM DATE/TIME: 09/17/2016 16:02 [place] COMPARISON: CHEST SINGLE AP, September 17, 2016, 9:04. INDICATIONS : Shortness of breath. DOSE: 8.1 mCi Tc99m MAA IV 1.4 mCi Tc99m DTPA aerosol MEDICAL HISTORY : Hypercholesterolemia. Hypertension. Bladder cancer SURGICAL HISTORY : Tonsillectomy. Pacemaker. ENCOUNTER: Initial ACUITY: 1 day PAIN SCALE: 0/10 LOCATION: TECHNIQUE: Following five minutes of tidal breathing of DTPA aerosol, planar images of the lungs were performed in eight projections. The patient was then injected with MAA, and eight-view perfusion scan was perf ormed. FINDINGS: There is some central activity in both lungs suggesting some degree of COPD. Prominent heart shadow o n the anterior and left lateral projections. No focal ventilatory defects are seen. The perfusion lung scan demonstrates a homogenous pattern of uptake in both lungs. No segmental or s ubsegmental defects are seen. CONCLUSION: Low probability scan for pulmonary embolus. Aldair Vences MD on September 17, 2016 at 16:48 Board Certified Radiologist. This report was verified electronically.
[2016-09-17 17:18] LABS: MAGNESIUM 1.5 MG/DL (1.5-2.5)
[2016-09-17 17:43] VITALS: PULSE 60
[2016-09-17] MEDS: PENTOXIFYLLINE 400 MG CONTROLLED RELEASE TAB PO SCH (18:34)
[2016-09-17] MEDS: FUROSEMIDE 40 MG/4 ML VIAL IV PUSH SCH (18:35)
--- NOTE | 2016-09-17 18:56 | EKG ---
Date Performed: 09/17/2016 Time Performed: 09:09:19 PTAGE: 81 years EKG: ELECTRONIC ATRIAL PACEMAKER ELECTRONIC VENTRICULAR PACEMAKER Since previous tracing, no sig nificant change noted ABNORMAL RHYTHM ECG PREVIOUS TRACING : 09/15/2016 07.26.48 DOCTOR: Jeff Burr Interpretating Date/Time 09/17/2016 18:56:19
[2016-09-17 20:04] VITALS: BP 164/70; PULSE 60; RESP 21; TEMP 98; O2SAT 98
[2016-09-17] MEDS ORDERED: TEMAZEPAM 15 MG CAP PO PRN (21:00)
[2016-09-17] MEDS ORDERED: TICAGRELOR 90 MG TAB PO SCH (21:00)
[2016-09-17] MEDS ORDERED: ATORVASTATIN 40 MG TAB PO SCH (21:00)
[2016-09-17] MEDS: SODIUM CHLORIDE 0.9% FLUSH 5 ML FLUSH FLUSH SCH (21:21)
[2016-09-17] MEDS: METOPROLOL TARTRATE 25 MG TAB PO SCH (21:21)
[2016-09-18 01:14] VITALS: BP 127/60; PULSE 60; RESP 21; TEMP 98.9; O2SAT 98
[2016-09-18 02:24] VITALS: PULSE 58
[2016-09-18 06:16] VITALS: BP 136/64; PULSE 60; RESP 21; TEMP 97.8; O2SAT 97
[2016-09-18 06:43] LABS: AUTOMATED NEUTROPHIL # 5.3 TH/MM3 (1.8-7.7); BASOPHIL % 0.5 % (0.0-2.0); EOSINOPHIL # 0.1 TH/MM3 (0-0.4); EOSINOPHIL % 1.5 % (0.0-4.0); HEMATOCRIT 29.6 % (39.0-51.0); HEMO FLAGS DIFF FINAL; LYMPHOCYTE # 1.1 TH/MM3 (1.0-4.8); MEAN CELL VOLUME 86.8 FL (80.0-100.0); MEAN CORPUSCULAR HEMOGLOBIN 29.8 PG (27.0-34.0); MEAN CORPUSCULAR HGB CONC 34.3 % (32.0-36.0); MONO % 9.5 % (0.0-8.0); NEUT % 73.5 % (16.0-70.0); PLATELET COUNT 228 TH/MM3 (150-450); RED BLOOD COUNT 3.41 MIL/MM3 (4.50-5.90); RED CELL DISTRIBUTION WIDTH 13.7 % (11.6-17.2); WHITE BLOOD COUNT 7.2 TH/MM3 (4.0-11.0)
[2016-09-18] MEDS: METOPROLOL TARTRATE 25 MG TAB PO SCH (06:48)
[2016-09-18] MEDS ORDERED: ISOSORBIDE MONONITRATE 30 MG TAB PO SCH (07:00)
[2016-09-18 07:30] LABS: ALKALINE PHOSPHATASE 78 U/L (45-117); ALT (GPT) 13 U/L (12-78); ANION GAP 7 MEQ/L (5-15); AST (GOT) 7 U/L (15-37); BICARBONATE 33.9 MEQ/L (21.0-32.0); BLOOD UREA NITROGEN 24 MG/DL (7-18); CHLORIDE 100 MEQ/L (98-107); GLOMERULAR FILTRATION RATE 55 ML/MIN (>89); SODIUM (NA) 141 MEQ/L (136-145); TOTAL BILIRUBIN ADULT 0.6 MG/DL (0.2-1.0)
[2016-09-18 08:00] VITALS: BP 146/68; PULSE 60; RESP 20; TEMP 96.9; O2SAT 92
[2016-09-18 08:01] VITALS: PULSE 61
--- NOTE | 2016-09-18 08:12 | PD.CARD.PN ---
Subjective Subjective Remarks no overnight events no complaints O2 sats 92% at rest Objective Medications Current Medications Medications (Trade) Dose Ordered Sig/Alfie Route Start Time Stop Time Status Last Admin (NS Flush) 2 ml UNSCH PRN FLUSH 09/17/16 11:45 (NS Flush) 2 ml BID FLUSH 09/17/16 21:00 09/17/16 21:21 (Tylenol) 650 mg Q4H PRN PO 09/17/16 11:45 (Zofran Inj) 4 mg Q6H PRN IVP 09/17/16 11:45 (Restoril) 15 mg HS PRN PO 09/17/16 21:00 (Tylenol) 650 mg Q6H PRN PO 09/17/16 11:45 (Narcan Inj) 0.4 mg UNSCH PRN IV 09/17/16 11:45 (Norvasc) 10 mg DAILY PO 09/18/16 09:00 (Aspirin Chew) 81 mg DAILY CHEW 09/18/16 09:00 (Lipitor) 40 mg HS PO 09/17/16 21:00 09/17/16 21:21 (Proscar) 5 mg DAILY PO 09/18/16 09:00 (Imdur) 30 mg DAILY@07 PO 09/18/16 07:00 09/18/16 06:48 (Prinivil) 40 mg DAILY PO 09/18/16 09:00 (Namenda) 10 mg DAILY PO 09/18/16 09:00 (Glucophage) 850 mg DAILY PO 09/18/16 09:00 (Lopressor) 25 mg Q8HR PO 09/17/16 22:00 09/18/16 06:48 (TRENtal SR) 400 mg TID PO 09/17/16 18:00 09/17/16 18:34 (Brilinta) 90 mg BID PO 09/17/16 21:00 09/17/16 21:21 (Ferrous Sulfate) 325 mg DAILY PO 09/18/16 09:00 (Lasix Inj) 40 mg BID@09,18 IV PUSH 09/17/16 18:00 09/17/16 18:35 (KCl) 20 meq DAILY PO 09/18/16 09:00 Vital Signs / I&O Vital Signs Date Time Temp Pulse Resp B/P Pulse Ox O2 Delivery O2 Flow Rate FiO2 09/18/16 06:16 97.8 60 21 136/64 97 09/18/16 02:24 58 09/18/16 01:14 98.9 60 21 127/60 98 09/17/16 20:04 98.0 60 21 164/70 98 09/17/16 17:43 60 09/17/16 15:36 97.6 60 18 153/67 95 09/17/16 14:06 97.6 60 20 123/57 96 09/17/16 10:30 61 18 139/63 95 Nasal Cannula 2 09/17/16 09:36 20 97 Nasal Cannula 2 09/17/16 09:12 87 Room Air 09/17/16 08:48 97.8 62 18 143/64 89 I/O 09/17/16 09/17/16 09/17/16 09/18/16 09/18/16 09/18/16 07:00 15:00 23:00 07:00 15:00 23:00 Output Total 400 ml 500 ml Balance -400 ml -500 ml Output Urine Total 400 ml 500 ml # Voids 1 2 Physical Exam GENERAL: Well-nourished, well-developed patient. SKIN: Warm and dry. HEAD: Normocephalic. EYES: No scleral icterus. No injection or drainage. NECK: Supple, trachea midline. No JVD or lymphadenopathy. CARDIOVASCULAR: Regular rate and rhythm without murmurs, gallops, or rubs. RESPIRATORY: Breath sounds equal bilaterally. No accessory muscle use. GASTROINTESTINAL: Abdomen soft, non-tender, nondistended. EXTREMITIES: No cyanosis, or edema. NEUROLOGICAL: Awake, alert, and oriented x 3. Non-focal. Laboratory Laboratory Tests Test 09/17/16 09/17/16 09/17/16 09/17/16 09:25 09:40 16:45 22:12 White Blood Count 10.8 TH/MM3 Red Blood Count 3.31 MIL/MM3 Hemoglobin 10.0 GM/DL Hematocrit 29.4 % Mean Corpuscular Volume 88.6 FL Mean Corpuscular Hemoglobin 30.1 PG Mean Corpuscular Hemoglobin 33.9 % Concent Red Cell Distribution Width 14.2 % Platelet Count 276 TH/MM3 Mean Platelet Volume 8.8 FL Neutrophils (%) (Auto) 82.9 % Lymphocytes (%) (Auto) 8.3 % Monocytes (%) (Auto) 8.0 % Eosinophils (%) (Auto) 0.4 % Basophils (%) (Auto) 0.4 % Neutrophils # (Auto) 9.0 TH/MM3 Lymphocytes # (Auto) 0.9 TH/MM3 Monocytes # (Auto) 0.9 TH/MM3 Eosinophils # (Auto) 0.0 TH/MM3 Basophils # (Auto) 0.0 TH/MM3 CBC Comment DIFF FINAL Differential Comment Prothrombin Time 11.3 SEC Prothromb Time International 1.0 RATIO Ratio Activated Partial 24.6 SEC Thromboplast Time Sodium Level 141 MEQ/L Potassium Level 3.6 MEQ/L Chloride Level 104 MEQ/L Carbon Dioxide Level 25.9 MEQ/L Anion Gap 11 MEQ/L Blood Urea Nitrogen 28 MG/DL Creatinine 1.43 MG/DL Estimat Glomerular Filtration 48 ML/MIN Rate Random Glucose 166 MG/DL Calcium Level 8.0 MG/DL Magnesium Level 1.6 MG/DL 1.5 MG/DL Total Bilirubin 0.8 MG/DL Aspartate Amino Transf 10 U/L (AST/SGOT) Alanine Aminotransferase 15 U/L (ALT/SGPT) Alkaline Phosphatase 79 U/L Total Creatine Kinase 72 U/L Troponin I 0.06 NG/ML 0.05 NG/ML 0.05 NG/ML B-Type Natriuretic Peptide 548 PG/ML Total Protein 6.6 GM/DL Albumin 3.1 GM/DL Blood Gas Puncture Site LT RADIAL Blood Gas Patient Temperature 98.6 Blood Gas HCO3 24 mmol/L Blood Gas Base Excess 0.1 mmol/L Blood Gas Oxygen Saturation 90 % Arterial Blood pH 7.42 Arterial Blood Partial 38 mmHg Pressure CO2 Arterial Blood Partial 69 mmHG Pressure O2 Arterial Blood Oxygen Content 12.6 Vol % Arterial Blood 2.5 % Carboxyhemoglobin Arterial Blood Methemoglobin 2.0 % Blood Gas Hemoglobin 10.0 G/DL Oxygen Delivery Device NASAL CANNULA Blood Gas Liter Flow 2 L/M Test 09/18/16 05:49 White Blood Count 7.2 TH/MM3 Red Blood Count 3.41 MIL/MM3 Hemoglobin 10.2 GM/DL Hematocrit 29.6 % Mean Corpuscular Volume 86.8 FL Mean Corpuscular Hemoglobin 29.8 PG Mean Corpuscular Hemoglobin 34.3 % Concent Red Cell Distribution Width 13.7 % Platelet Count 228 TH/MM3 Mean Platelet Volume 8.7 FL Neutrophils (%) (Auto) 73.5 % Lymphocytes (%) (Auto) 15.0 % Monocytes (%) (Auto) 9.5 % Eosinophils (%) (Auto) 1.5 % Basophils (%) (Auto) 0.5 % Neutrophils # (Auto) 5.3 TH/MM3 Lymphocytes # (Auto) 1.1 TH/MM3 Monocytes # (Auto) 0.7 TH/MM3 Eosinophils # (Auto) 0.1 TH/MM3 Basophils # (Auto) 0.0 TH/MM3 CBC Comment DIFF FINAL Differential Comment Sodium Level 141 MEQ/L Potassium Level 3.0 MEQ/L Chloride Level 100 MEQ/L Carbon Dioxide Level 33.9 MEQ/L Anion Gap 7 MEQ/L Blood Urea Nitrogen 24 MG/DL Creatinine 1.27 MG/DL Estimat Glomerular Filtration 55 ML/MIN Rate Random Glucose 126 MG/DL Calcium Level 7.8 MG/DL Total Bilirubin 0.6 MG/DL Aspartate Amino Transf 7 U/L (AST/SGOT) Alanine Aminotransferase 13 U/L (ALT/SGPT) Alkaline Phosphatase 78 U/L B-Type Natriuretic Peptide 482 PG/ML Total Protein 6.4 GM/DL Albumin 3.0 GM/DL Imaging Last Impressions Chest X-Ray 09/17/16 0907 Signed Impressions: Service Date/Time: Saturday, September 17, 2016 09:04 - CONCLUSION: 1. Cardiomegaly and findings of vascular congestion without overt failure. Kadeem Tidwell MD Lung Scan- Nuclear Medicine 09/17/16 0000 Signed Impressions: Service Date/Time: Saturday, September 17, 2016 16:02 - CONCLUSION: Low probability scan for pulmonary embolus. Aldair Vences MD Assessment and Plan Problem List: (1) CHF exacerbation Assessment and Plan: SOB better, no complaints Encourage ambulation, OOB Incentive spirometry Cont Diuresis. Increase home dose of Lasix to 40mg PO BID Change Brilinta to Plavix. Will give a loading dose of Plavix 600mg PO today and then 75mg PO daily Problem Qualifiers (1) CHF exacerbation: Qualified Code: I50.9 - Acute on chronic congestive heart failure, unspecified congestive heart failure type Carmona-Hector Romero MD Sep 18, 2016 08:12
[2016-09-18] MEDS: PENTOXIFYLLINE 400 MG CONTROLLED RELEASE TAB PO SCH (08:46)
[2016-09-18] MEDS: FUROSEMIDE 40 MG/4 ML VIAL IV PUSH SCH (08:47)
[2016-09-18] MEDS: SODIUM CHLORIDE 0.9% FLUSH 5 ML FLUSH FLUSH SCH (08:47)
[2016-09-18] MEDS ORDERED: POTASSIUM CHLORIDE 20 MEQ CONTROLLED RELEASE TAB PO SCH (09:00)
[2016-09-18] MEDS ORDERED: FINASTERIDE 5 MG TAB PO SCH (09:00)
[2016-09-18] MEDS ORDERED: CLOPIDOGREL 300 MG TAB PO ONE (09:00)
[2016-09-18] MEDS ORDERED: FERROUS SULFATE 325 MG (65 MG ELEMENTAL IRON) TAB PO SCH (09:00)
[2016-09-18] MEDS ORDERED: metFORMIN HCL 850 MG TAB PO SCH (09:00)
[2016-09-18] MEDS ORDERED: LISINOPRIL 20 MG TAB PO SCH (09:00)
[2016-09-18] MEDS ORDERED: ASPIRIN 81 MG CHEW TAB CHEW SCH (09:00)
[2016-09-18] MEDS ORDERED: MEMANTINE HCL 10 MG TAB PO SCH (09:00)
--- NOTE | 2016-09-18 09:14 | HHI.PR ---
Subjective Remarks Acute on chronic CHF exacerbation 09/18/16-patient seen and examined, reports significant improvement of shortness of breath, denies any dyspnea on exertion as patient able to ambulate out of his room without any significant complaint. Currently afebrile. No acute event overnight. Patient given Plavix loading dose this morning. Objective Vitals Vital Signs Date Time Temp Pulse Resp B/P Pulse Ox O2 Delivery O2 Flow Rate FiO2 09/18/16 06:16 97.8 60 21 136/64 97 09/18/16 02:24 58 09/18/16 01:14 98.9 60 21 127/60 98 09/17/16 20:04 98.0 60 21 164/70 98 09/17/16 17:43 60 09/17/16 15:36 97.6 60 18 153/67 95 09/17/16 14:06 97.6 60 20 123/57 96 09/17/16 10:30 61 18 139/63 95 Nasal Cannula 2 09/17/16 09:36 20 97 Nasal Cannula 2 09/17/16 09:12 87 Room Air I/O 09/17/16 09/17/16 09/17/16 09/18/16 09/18/16 09/18/16 07:00 15:00 23:00 07:00 15:00 23:00 Output Total 400 ml 500 ml Balance -400 ml -500 ml Output Urine Total 400 ml 500 ml # Voids 1 2 Result Diagram: 09/18/16 0549 09/18/16 0549 Imaging Last Impressions Chest X-Ray 09/17/16 0907 Signed Impressions: Service Date/Time: Saturday, September 17, 2016 09:04 - CONCLUSION: 1. Cardiomegaly and findings of vascular congestion without overt failure. Kadeem Tidwell MD Lung Scan-V Nuclear Medicine 09/17/16 0000 Signed Impressions: Service Date/Time: Saturday, September 17, 2016 16:02 - CONCLUSION: Low probability scan for pulmonary embolus. Aldair Vences MD Objective Remarks GENERAL: NAD SKIN: Warm and dry. HEAD: Normocephalic. EYES: No scleral icterus. No injection or drainage. NECK: Supple, trachea midline. No JVD or lymphadenopathy. CARDIOVASCULAR: Regular rate and rhythm without murmurs, gallops, or rubs. RESPIRATORY: Breath sounds equal bilaterally. No accessory muscle use. GASTROINTESTINAL: Abdomen soft, non-tender, nondistended. MUSCULOSKELETAL: No cyanosis, or edema. BACK: Nontender without obvious deformity. No CVA tenderness. A/P Problem List: (1) Acute on chronic systolic (congestive) heart failure ICD Code: I50.23 Status: Acute Assessment and Plan 81-year-old male with Acute on chronic systolic CHF: ACS ruled out per protocol; status post Lasix is 40 mg IV 1 in ED; now on 40 mg PO twice a day. Patient is status post recent NSTEMI with PCI. Continue beta toshia, LITTLE inhibitor. Appreciate input from cardiology. CHF medication and strict I's and O's. Other chronic medical conditions; continue outpatient medications Severe ischemic cardiomyopathy: s/p recent PCI; continue with aspirin, statin, beta toshia. Brilinta discontinued this morning. Status post Plavix loading dose and was start Plavix 75 mg daily on 09/19/16 PVD: On Trental Hypertension: Continue Lopressor, Norvasc 10 mg daily Hyperlipidemia: continue statin Diabetes type 2: ISS + [facility] monitoring and resume outpatient medication DVT prophylaxis: B-SCDs Discharge Planning Discharge patient to home Condition on discharge: Improved Regular Diet as tolerated Ad Suze activity Rx written: Plavix 75 mg daily; Lasix 40 mg twice a day; K-dur 20Meq daily Follow-up with primary care physician in 1 week; Cardiology in 1-2 weeks Nickolas Cheung MD Sep 18, 2016 09:14
[2016-09-18] MEDS ORDERED: POTASSIUM CHLORIDE 10 MEQ CONTROLLED RELEASE TAB PO ONE (09:15)
[2016-09-18] MEDS ORDERED: POTA20TA5 PO (09:17)
[2016-09-18] MEDS ORDERED: FURO1TAB60 PO (09:17)
[2016-09-18] MEDS ORDERED: PLAV75TA29 PO (09:17)
[2016-09-19] MEDS ORDERED: CLOPIDOGREL 75 MG TAB PO SCH (09:00)
== END 2016-09-18 11:44 | disposition home or self-care (01) ==
LOC: NEPC 08:45 → NEDA 11:24 → NEPGCP 14:03
PROVIDERS: ADMIT Hospitalist; ATTEND Hospitalist
DX: I50.23 Acute on chronic systolic (congestive) heart failure (principal); R09.02 Hypoxemia; I13.0 Hypertensive heart and chronic kidney disease with heart failure and stage 1 through stage 4 chronic kidney disease, or unspecified chronic kidney disease; I25.5 Ischemic cardiomyopathy; N18.9 Chronic kidney disease, unspecified; E11.22 Type 2 diabetes mellitus with diabetic chronic kidney disease; I25.10 Atherosclerotic heart disease of native coronary artery without angina pectoris; I45.10 Unspecified right bundle-branch block; I25.2 Old myocardial infarction; I73.9 Peripheral vascular disease, unspecified; J44.9 Chronic obstructive pulmonary disease, unspecified; E78.5 Hyperlipidemia, unspecified; E78.00 Pure hypercholesterolemia, unspecified; Z79.02 Long term (current) use of antithrombotics/antiplatelets; Z85.51 Personal history of malignant neoplasm of bladder; Z85.820 Personal history of malignant melanoma of skin; Z86.010 Personal history of colon polyps; Z86.73 Personal history of transient ischemic attack (TIA), and cerebral infarction without residual deficits; Z95.1 Presence of aortocoronary bypass graft; Z95.5 Presence of coronary angioplasty implant and graft; Z95.810 Presence of automatic (implantable) cardiac defibrillator; Z96.652 Presence of left artificial knee joint; Z87.891 Personal history of nicotine dependence
CPT/HCPCS: 36600; 71010; 78582; 80053; 82550; 82805; 83735; 83880; 84484; 85025; 85610; 85730; 93005; 96374; 99285; A9540; A9567; G0378; J1940